=== PATIENT | female | born 1970 | race Two or more races ===

== ENCOUNTER 2024-07-30 05:30 | Day surgery (SDC) | payer OTHER, MEDICAID, SELFPAY ==
[2024-07-27 10:04] VITALS: BMI 35.2
[2024-07-27 10:30] LABS: Collection Type, Urine Clean Catch
[2024-07-27 11:10] LABS: Basophils % (Auto) 1 % (0-2.5); Eosinophils # (Auto) 0.2 Thou/mm3 (0.0-0.5); Eosinophils % (Auto) 3 % (0-10); Hematocrit 35.8 % (36.0-46.0); Hemoglobin 11.1 g/dL (12.0-16.0); Immature Granulocytes % (Auto) 0 % (0-0); Immature Granulocytes Auto 0.01 Thou/mm3 (0.00-0.00); Lymphocytes # (Auto) 1.6 Thou/mm3 (1.0-4.8); Lymphocytes % (Auto) 29 % (10-50); Mean Corpuscular Volume 71 fL (80-100); Monocytes # (Auto) 0.5 Thou/mm3 (0.0-0.8); Monocytes % (Auto) 9 % (0-12); Neutrophils # (Auto) 3.2 Thou/mm3 (1.8-7.7); Neutrophils % (Auto) 59 % (37-80); Nucleated Red Blood Cell % 0 /100 WBC (0); Platelet Count 452 Thou/mm3 (140-440); RDW Standard Deviation 41.7 fL (36.4-46.3); Red Blood Count 5.05 Miln/mm3 (4.00-5.20); White Blood Count 5.4 Thou/mm3 (3.6-11.0)
[2024-07-27 11:12] LABS: HCG Qualitative,Urine Negative
[2024-07-27 11:18] LABS: Bacteria,Urine Rare; Bilirubin,Urine Negative (Negative); Blood,Urine Negative (Negative); Clarity,Urine Clear (Clear/Hazy); Color,Urine Yellow (Lt Yel-Yel); Glucose, Urine Negative (Negative); Hyaline Casts,Urine < 1 /hpf (0-1); Ketones,Urine 2+ (Negative); Leukocyte Esterase,Urine Negative (Negative); Nitrite,Urine Negative (Negative); PH,Urine 6.5 (5.0-7.0); Protein,Urine Trace (Neg - Trace); RBC,Urine 2 /hpf (0-3); Squamous Epithelial Cell,Urine 3 /hpf (0-5); Urobilinogen,Urine Negative mg/dL (0.0-1.0); WBC,Urine 1 /hpf (0-5)
[2024-07-27 11:45] LABS: Alanine Aminotransferase 22 U/L (10-49); Albumin, Serum 4.9 gm/dL (3.5-5.0); Albumin/Globulin Ratio 1.7 (1.2-2.2); Alkaline Phosphatase 63 U/L (46-116); Anion Gap 9 (7-16); Aspartate Amino Transferase 26 U/L (0-34); BUN/Creatinine Ratio 10 Ratio (12-20); Blood Urea Nitrogen 9 mg/dL (9-23); Calcium 9.6 mg/dL (8.3-10.6); Calcium (Corrected) 9.6 mg/dL (8.5-10.1); Carbon Dioxide 24.9 mMol/L (20.0-31.0); Chloride 102 mMol/L (98-107); Creatinine (Component) 0.9 mg/dL (0.6-1.3); Estimated Creatinine Clearance 75.1 mL/min (>60); Globulin 2.9 gm/dL (2.3-3.5); Glucose 106 mg/dL (74-106); Osmolality,Calculated 270 (275-295); Potassium 3.7 mMol/L (3.4-5.1); Sodium 136 mMol/L (136-145); Total Protein 7.8 gm/dL (5.7-8.2); eGFR > 60 See Note
[2024-07-27 12:04] LABS: Partial Thromboplastin Time 26.7 Seconds (22.0-36.0); Prothrombin Time 11.1 Seconds (9.0-12.2)
[2024-07-27 14:26] LABS: Bilirubin,Total 1.4 mg/dL (0.3-1.2)
--- NOTE | 2024-07-28 10:59 | PD.SURHP ---
HPI Date of Admission July 30, 2024 Chief Complaint Chief Complaint: Large hiatal hernia and gastroesophageal reflux unresponsive to medical management. HPI This 54-year-old female is brought to the surgery for laparoscopic hiatal hernia repair and implantation of a patch and laparoscopic Rhona fundoplication due to longstanding problem with gastroesophageal reflux which is unresponsive. She was seen in the emergency room with complaints of pain and the CT scan showed that she has large retrocardiac hernia.. The risk benefits and alternatives discussed with the patient and informed consent is obtained. Small risk of explore laparotomy. It is planned for her to be in the hospital for 2 to 3 days for postoperative management. Past Medical History Past Medical History NEUROLOGIC: Negative Neurological Disorders or Seizures CARDIAC: Positive Cardiac Disorders and Valvular Heart Disease; Negative Congestive Heart Failure RESPIRATORY: Negative Respiratory Disorders or Chronic Obstructive Pulmonary Disease (COPD) GASTROINTESTINAL: Positive Gastrointestinal Disorders, Ulcer (Gastric ulcer that was bleeding), Hiatal Hernia, Gastroesophageal Reflux Disease and Obesity; Negative Hepatitis GENITOURINARY: Negative Genitourinary Disorders or Renal Disease REPRODUCTIVE: Negative Previous Pregnancies MUSCULOSKELETAL: Positive Musculoskeletal Disorders and Fibromyalgia (gets monthly injections for pain) ENT: Negative History of ENT Problems ENDOCRINE: Negative Endocrine Disorders, Diabetes Mellitus Type 1 or Diabetes Mellitus Type 2 HEMATOLOGIC: Negative Blood Disorders PSYCHO/SOCIAL: Positive Depression (feels better no meds) and Anxiety OTHER HISTORY: Positive Hospitalization (bleeding ulcer); Negative Autoimmune Disease, Shingles, Blood Transfusions, Blood Transfusion Reaction, Anesthesia Reactions, Chicken Pox or Cancer Family History FAMILY HISTORY: Positive Family Cancer and Family Surgery; Negative Family Psychiatric Problems, Family Respiratory Disorders, Family Cardiac Disorders, Family Gastrointestinal Problems, Family Genitourinary Problems, Family Endocrine Disorders, Family Reproductive Disorders, Family Musculoskeletal Disorders or Family Anesthesia Reaction Surgical History OTHER SURGICAL HX: Had surgery for bleeding gastric ulcer Social History SMOKING STATUS: Never smoker Travel History EBOLA RISK: No Meds Home Medications and Allergies Home Medications ?Medication ?Instructions ?Recorded ?Confirmed ?Type omeprazole 40 mg capsule,delayed 40 mg PO QDAY 05/08/24 07/27/24 History release Allergies Allergy/AdvReac Type Severity Reaction Status Date / Time No Known Allergies Allergy Verified 07/27/24 10:03 Exam Constitutional Constitutional: no acute distress Routine HEENT Exam Head: Present normocephalic Eye: Present EOMI and PERRL ENT: Present mucous membranes moist Routine Neck Exam Neck: Present supple and trachea midline Routine Chest/Breast/Axilla Exam Chest wall: Absent tenderness or mass Routine Respiratory Exam Respiratory: Present chest non-tender, lungs clear, normal breath sounds and no resp distress; Absent respiratory distress Routine Cardiovascular Exam Cardiovascular: Present RRR Routine Abdominal Exam Abdominal: Present soft and normoactive bowel sounds Routine Extremities Exam Extremities: Present full ROM Routine Skin Exam Skin: Present intact, dry and warm Routine Neurological Exam Neurological: Present alert, oriented X3 and CN II-XII intact Routine Psychiatric Exam Psychiatric: Present normal affect and normal thought process Results Results: Laboratory Laboratory results: results reviewed Assessment & Plan Problem List (1) Gastroesophageal hernia: Status: Acute (2) Erosive gastroesophageal reflux disease: Status: Acute Plan Laparoscopic hiatal hernia repair with implantation of a patch and 360 degree Rhona fundoplication. Possible laparotomy. Risk benefits and alternatives were discussed with the patient and informed consent is obtained. Is plan for her to be in the hospital for 2 to 3 days for postop care. Quality Measures Quality Measures VTE prophylaxis
[2024-07-30] VITALS (10 sets, daily range): BP systolic 126–151; BP diastolic 69–90; PULSE 68–88; RESP 13–20; TEMP 36.2–36.3; O2SAT 95–100; BMI 34.7
[2024-07-30] MEDS: RINGERS LACTATED 1000 ML 1,000 ML 60 ML IV (06:18)
--- NOTE | 2024-07-30 07:27 | CHAP ---
Patient expressed gratitude for prayer before their procedure.
--- NOTE | 2024-07-30 09:18 | SUR.PHASEI ---
0918: Pt. AAOx4, vitals stable, breathing unlabored, no complaint of pain or nausea, x2 dressing to ABD CDI, no active bleed noted, report received from Rossi BARBOZA and MD Fox.
[2024-07-30] MEDS: fentaNYL CIT INJ 50 mCg/ML AMP 2ML 25 MCG IV ×2 (09:29→09:45)
--- NOTE | 2024-07-30 09:38 | ESOP_ITS ---
Date of Procedure 07/30/24 Pre Op Diagnosis Large hiatal hernia and refractory gastroesophageal reflux. Post Op Diagnosis Same. With tumor left lobe of the liver. Procedure Diagnostic laparoscopy on July 30, 2024 Laparoscopic hiatal hernia repair and Rhona fundoplication was scheduled however it was not carried out because the tumor was found in the left lobe of the liver. Findings This patient was found to have about 10 cm tumor at the edge of the left lobe of the liver and there appeared to have cystic and solid components to that it could be a larger liver cyst however the area appears to have a solid component to it and therefore the procedure was terminated after examination. Procedure Description The patient was interviewed in the preoperative area risk benefits alternatives were discussed with the patient and informed consent is obtained. Patient was then taken to the operating room and general anesthesia was administered in the satisfactory manner. Abdomen was prepped and draped in usual manner supraumbilical incision was made and open laparoscopic procedure was carried out a balloon cannula was introduced. Pneumoperitoneum was achieved and then patient is positioned in the reverse Trendelenburg position and 30 degree laparoscope was introduced. On initial laparoscopic examination I found that there was a tumor in the left lobe of the liver. I inserted the left midclavicular trocar for instrument access to the peritoneal cavity. I found that there were no other cystic or solid lesions anywhere in the liver. The gallbladder had omental adhesions however there was no other tumo in the right and left lobe of liver. I did not find any other evidence of peritoneal spread. The tumor in the left lobe was not biopsied photographic evidence was taken for communication to hepatobiliary surgeon for further evaluation and resection. The hiatus was examined and there is a large hiatal hernia with 30% of the stomach residing in the chest. It was decided to terminate the procedure. The cannulas were removed. The linea alba was approximated by 0 Vicryl continuous sutures subtenons tissue by 3-0 chromic and skin by 4-0 Monocryl subcuticular stitches Steri-Strips were applied. The left midclavicular trocar site was closed with 3-0 chromic and 4-0 Monocryl subcuticular stitches Steri-Strips were applied. Patient tolerated the procedure well and was transferred to the recovery room in satisfactory condition. Anesthesia GETA Drains None. Implants None. Pathology / specimen None Estimated Blood Loss 0 Condition Stable Disposition PACU Surgeon Clifford Irby MD Surgical Staff Operation Date: 07/30/24 07:30 Case Staff Anesthesiologist: Demario Fox RN First Assistant: Anu Mcbride RN modeling manager Gilberto Villatoro rn neurosurgical
--- NOTE | 2024-07-30 09:54 | XR_ITS ---
Examination: CT abdomen, without intravenous contrast. CT pelvis, without intravenous contrast. CT abdomen, with intravenous contrast. CT pelvis, with intravenous contrast. 2-D sagittal coronal reconstructions. Date and time of exam:July 30, 2024 1022 hours INDICATIONS: Diagnosis liver tumor CTDI: vol (mGy) 18.81 DLP: (mGycm) 1174 Technique: Multiple 3.0 axial images of the abdomen and pelvis without intravenous contrast, 3.0 mm slice thickness. Multiple 3.0 postcontrast images abdomen and pelvis also obtained, post intravenous injection 60 cc [id number] 2-D sagittal and coronal reconstructions. Low dose protocols were performed. One or more of the following dose reduction techniques were used; automated exposure control, adjustment of the mA and/or KV according to patient size, use of iterative reconstruction technique. Findings: Exophytic enhancing left lobe liver lesion, 4.9 x 4.3 cm Medial right lobe liver lesion 10 x 12 mm No splenic mass No gallstones No pancreatic or adrenal mass No renal or ureteral calculi, no hydronephrosis Aorta normal size Numerous air droplets in the subcutaneous tissue anterior abdominal wall, clinical correlation advised Pneumoperitoneum 20 mm supraumbilical hernia defect 5 mm fat-containing umbilical hernia defect Normal appendix Enlarged fundus of uterus with uterine masses, the largest 4 cm Near the urinary bladder IMPRESSION: Exophytic enhancing left lobe liver lesion 4.9 x 4.3 cm Medial right lobe liver lesion 10 x 12 mm Air in the soft tissue anterior abdominal wall, pneumoperitoneum, which may be postoperative, clinical correlation advised Enlarged fundus of uterus with multiple uterine masses, the largest 4 cm, clinical correlation
--- NOTE | 2024-07-30 10:55 | SUR.PHASEII ---
1055: Pt. AAOx4, vitals stable, breathing unlabored, no complaint of pain or nausea, x2 dressing to ABD CDI, no active bleed noted, pt. tolerated sips of water well, pt, ambulated to wheelchair with steady gait and no assist, no complications. Pt. tolerated CT well, gave discharge instructions to the pt. and her ride using college basketball coach Tati CONLEY, both verbalized understanding and had no further questions. Pt. left with all personal belongings.
== END 2024-07-30 10:55 | disposition home or self-care (01) ==
PROVIDERS: Anesthesiology; PCP Physician Assistant; Referring Provider Specialist; Visit Provider Specialist
PROC: 0DV44ZZ Restriction of Esophagogastric Junction, Percutaneous Endoscopic Approach (ICD-10-PCS; CPT 43280; principal; 2024-07-30 07:30)
DX: K44.9 Diaphragmatic hernia without obstruction or gangrene (principal); K21.00 Gastro-esophageal reflux disease with esophagitis, without bleeding; E66.9 Obesity, unspecified; M79.7 Fibromyalgia; Z53.9 Procedure and treatment not carried out, unspecified reason; Z68.34 Body mass index [BMI] 34.0-34.9, adult
CPT/HCPCS: 43282; 36415; 74178; 80053; 81001; 81025; 85025; 85610; 85730; A4217; A4649; J0461; J0694; J1100; J2250; J2371; J2405; J2704; J3010; J3490; J7120; Q9967; A9270

== ENCOUNTER 2024-11-26 12:47 | Inpatient (IN) | payer MEDICAID, SELFPAY ==
--- NOTE | 2024-11-23 06:44 | EKG_ITS ---
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
[2024-11-23 08:22] VITALS: BMI 33.6
[2024-11-23 08:48] LABS: Collection Type, Urine Clean Catch
[2024-11-23 08:58] LABS: Basophils # (Auto) 0.1 Thou/mm3 (0.0-0.2); Basophils % (Auto) 1 % (0-2.5); Eosinophils # (Auto) 0.3 Thou/mm3 (0.0-0.5); Eosinophils % (Auto) 4 % (0-10); Hematocrit 38.4 % (36.0-46.0); Immature Granulocytes % (Auto) 0 % (0-0); Immature Granulocytes Auto 0.01 Thou/mm3 (0.00-0.00); Lymphocytes # (Auto) 2.2 Thou/mm3 (1.0-4.8); Lymphocytes % (Auto) 32 % (10-50); Mean Corpuscular HGB Conc 31.3 g/dl (31.0-37.0); Mean Corpuscular Volume 67 fL (80-100); Monocytes # (Auto) 0.7 Thou/mm3 (0.0-0.8); Monocytes % (Auto) 9 % (0-12); Neutrophils # (Auto) 3.7 Thou/mm3 (1.8-7.7); Neutrophils % (Auto) 53 % (37-80); Nucleated Red Blood Cell % 0 /100 WBC (0); Platelet Count 392 Thou/mm3 (140-440); RDW Standard Deviation 45.6 fL (36.4-46.3); Red Blood Count 5.72 Miln/mm3 (4.00-5.20)
[2024-11-23 09:11] LABS: HCG,Qualitative Serum Negative
[2024-11-23 09:14] LABS: Partial Thromboplastin Time 26.3 Seconds (22.0-36.0); Prothrombin Time 11.2 Seconds (9.0-12.2)
[2024-11-23 09:17] LABS: Alanine Aminotransferase 16 U/L (10-49); Albumin, Serum 4.8 gm/dL (3.5-5.0); Albumin/Globulin Ratio 1.5 (1.2-2.2); Alkaline Phosphatase 69 U/L (46-116); Anion Gap 10 (7-16); Aspartate Amino Transferase 18 U/L (0-34); BUN/Creatinine Ratio 15 Ratio (12-20); Bilirubin,Total 0.9 mg/dL (0.3-1.2); Blood Urea Nitrogen 12 mg/dL (9-23); Calcium 10.4 mg/dL (8.3-10.6); Calcium (Corrected) 10.4 mg/dL (8.5-10.1); Carbon Dioxide 26.9 mMol/L (20.0-31.0); Chloride 104 mMol/L (98-107); Creatinine (Component) 0.8 mg/dL (0.6-1.3); Estimated Creatinine Clearance 85.5 mL/min (>60); Globulin 3.3 gm/dL (2.3-3.5); Glucose 125 mg/dL (74-106); Osmolality,Calculated 281 (275-295); Potassium 4.5 mMol/L (3.4-5.1); Sodium 141 mMol/L (136-145); Total Protein 8.1 gm/dL (5.7-8.2); eGFR > 60 See Note
[2024-11-23 09:17] LABS: Bilirubin,Urine Negative (Negative); Blood,Urine Negative (Negative); Clarity,Urine Clear (Clear/Hazy); Color,Urine Lt-Yellow (Lt Yel-Yel); Glucose, Urine Negative (Negative); Ketones,Urine Negative (Negative); Leukocyte Esterase,Urine Positive (Negative); Nitrite,Urine Negative (Negative); PH,Urine 6.5 (5.0-7.0); Protein,Urine Negative (Neg - Trace); RBC,Urine 2 /hpf (0-3); Specific Gravity,Urine 1.022 (1.001-1.035); Squamous Epithelial Cell,Urine 7 /hpf (0-5); Urobilinogen,Urine Negative mg/dL (0.0-1.0); WBC,Urine 4 /hpf (0-5)
[2024-11-23 10:11] LABS: Path Review Blood Smear Sent to Pathologist
--- NOTE | 2024-11-23 14:03 | SUR.PREOP ---
Pt notified to come in at 544 for surgery.
--- NOTE | 2024-11-23 14:53 | SUR.PREOP ---
Dr Irby's MA stated pt did make them aware that she will not take a blood transfusion.
--- NOTE | 2024-11-25 18:05 | PD.SURHP ---
HPI Date of Admission November 26, 2024 Chief Complaint Chief Complaint: Lesion in the left lobe of liver HPI This 54-year-old female is brought to the hospital for explore laparotomy and wedge resection of a small lesion on the edge of the left lobe of the liver. She was previously scheduled for laparoscopic hiatal hernia repair and at that time I lesion was noted at the edge of the left lobe of the liver and the laparoscopic fundoplication procedure was terminated as there was no informed consent. Subsequently she underwent CT scan examination and that showed there was a small lesion in the left lobe of the liver on the edge. This is amenable to wedge resection. Informed consent was obtained and she is now brought to the hospital for laparotomy and wedge resection of the tumor lesion of the left lobe of the liver. Past Medical History Past Medical History NEUROLOGIC: Negative Neurological Disorders or Seizures CARDIAC: Positive Valvular Heart Disease; Negative Cardiac Disorders or Congestive Heart Failure RESPIRATORY: Negative Respiratory Disorders, Chronic Obstructive Pulmonary Disease (COPD) or Asthma GASTROINTESTINAL: Positive Gastrointestinal Disorders, Gastrointestinal Bleed (rupture ulcer), Ulcer, Hiatal Hernia, Gastroesophageal Reflux Disease and Obesity; Negative Hepatitis GENITOURINARY: Negative Genitourinary Disorders or Renal Disease REPRODUCTIVE: Negative Previous Pregnancies MUSCULOSKELETAL: Positive Musculoskeletal Disorders and Fibromyalgia ENT: Negative History of ENT Problems ENDOCRINE: Negative Endocrine Disorders, Diabetes Mellitus Type 1 or Diabetes Mellitus Type 2 HEMATOLOGIC: Negative Blood Disorders or Sickle Cell Disease PSYCHO/SOCIAL: Positive Depression (not taking meds anymore) and Anxiety (not taking meds anymore) OTHER HISTORY: Positive Hospitalization; Negative Autoimmune Disease, Shingles, Blood Transfusions, Blood Transfusion Reaction, Anesthesia Reactions, Chicken Pox or Cancer Family History FAMILY HISTORY: Positive Family Cardiac Disorders, Family Endocrine Disorders, Family Cancer and Family Surgery; Negative Family Psychiatric Problems, Family Respiratory Disorders, Family Gastrointestinal Problems, Family Genitourinary Problems, Family Reproductive Disorders, Family Musculoskeletal Disorders or Family Anesthesia Reaction Surgical History SURGICAL: Negative Abdominal Surgery (gastric ulcer repair) OTHER SURGICAL HX: Had surgery for bleeding gastric ulcer Social History SMOKING STATUS: Never smoker Travel History EBOLA RISK: No Meds Home Medications and Allergies Home Medications ?Medication ?Instructions ?Recorded ?Confirmed ?Type omeprazole 40 mg capsule,delayed 40 mg PO QDAY 05/08/24 11/23/24 History release Allergies Allergy/AdvReac Type Severity Reaction Status Date / Time No Known Allergies Allergy Verified 11/23/24 08:21 Exam Constitutional Constitutional: no acute distress Routine HEENT Exam Head: Present normocephalic Eye: Present EOMI and PERRL ENT: Present mucous membranes moist Routine Neck Exam Neck: Present supple and trachea midline Routine Chest/Breast/Axilla Exam Chest wall: Absent tenderness or mass Routine Respiratory Exam Respiratory: Present chest non-tender, lungs clear, normal breath sounds and no resp distress; Absent respiratory distress Routine Cardiovascular Exam Cardiovascular: Present RRR Routine Abdominal Exam Abdominal: Present soft and normoactive bowel sounds Comments: There is are healing incisions from previous laparoscopic examination. There is no evidence of incisional hernia from the trocar site. Routine Extremities Exam Extremities: Present full ROM Routine Skin Exam Skin: Present intact, dry and warm Routine Neurological Exam Neurological: Present alert, oriented X3 and CN II-XII intact Routine Psychiatric Exam Psychiatric: Present normal affect and normal thought process Results Results: Laboratory Laboratory results: results reviewed Assessment & Plan Problem List (1) Liver neoplasm: Status: Acute (2) Gastroesophageal hernia: Status: Acute (3) Erosive gastroesophageal reflux disease: Status: Acute Plan Exploratory laparotomy and wedge resection of the tumor of the left lobe of the liver. Patient will undergo intraoperative ultrasound to map out the tumor. Risk benefits and alternatives were discussed with the patient and informed consent is obtained. Quality Measures Quality Measures VTE prophylaxis
[2024-11-26] VITALS (18 sets, daily range): BP systolic 117–157; BP diastolic 72–98; PULSE 70–93; RESP 12–93; TEMP 35.7–36.7; O2SAT 92–100; BMI 33.0
--- NOTE | 2024-11-26 07:29 | SUR.PREOP ---
Patient expressed gratitude for prayer before their procedure.
--- NOTE | 2024-11-26 10:18 | PD.SUROPNT ---
Date of Procedure 11/26/24 Pre Op Diagnosis Tumor left lobe of the liver Post Op Diagnosis Same. Procedure Exploratory laparotomy and resection of the left lobe of the liver tumor on 11/26/2024 Intraoperative ultrasound Findings There was a 7 cm x 7 cm soft tumor on the edge of the left lobe of liver. This was on the left side of the falciform ligament it was close to the edge. Ultrasound examination showed that there is a distinct capsule and there is some necrotic areas within the tumor. There were no other significant findings. Rapid frozen section examination was carried out by the pathologist and it felt that there was no metastatic cancer and there was significant vascularity to the tumor. Procedure Description This patient is a Tenriism and refused to have blood transfusion. Patient was examined in the preop area and the procedure was described to the patient risk benefits and alternatives were discussed with the patient and informed consent is obtained. The patient was then taken to the operating room and general anesthesia was administered in satisfactory manner. IV antibiotics were given and a timeout procedure was carried out. Chest and abdominal regions were prepped and draped in usual manner. Previous laparoscopic scar was excised and midline incision was made from xiphisternum to the umbilicus. Local anesthesia 1% lidocaine with epinephrine is used as adjunct. The incision was deepened through the layers of the abdominal wall and explore laparotomy was carried out. An Omni-Tract self-retaining retractor was used to retract the abdominal wall. There were no other identifiable lesions in the liver. Omni-Tract self-retaining retractor is used. Intraoperative ultrasound is carried out with 7.5 MHz linear probe under sterile cover. The extent of the tumor was identified. The liver capsule was scored with electrocautery. Then I used the Enseal to divide the liver. It was divided on both the side like a wedge. There was a pedicle with likely bile duct entering in this area and this was clamped and ligated with 2-0 silk tie. There was minimal amount of bleeding. Hemostasis was achieved. The specimen was removed and sent to the pathologist for frozen section and is fresh examination. The pathologist felt that it was a benign tumor. After that I looked at the resected area in the liver. There was no active bleeding. I placed a Surgicel gauze inside or in between the edges of the excised wedge. Then I took 0 chromic blunt liver needle and went around on both the sides and closed the defect with the Surgicel in the middle. It required 3 such stitches to hold the resected liver edges together. There was no longer any oozing or bleeding. Operative field was thoroughly irrigated with saline solution and laps and instrument counts were obtained they are correct x 2 the Omni-Tract retractor was removed. Again the operative field is thoroughly examined and there are no other labs remaining. The linea alba was approximated by 0 PDS continuous suture interrupted in the middle. Subtenons tissue by 3-0 chromic and skin by 4-0 Monocryl subcuticular stitches. Steri-Strips were applied. Patient tolerated the procedure well and transferred to the recovery room in a satisfactory condition. Complications none. Anesthesia GETA Drains None. Implants None. Pathology / specimen Other (Left lobe of the liver resected tumor and the skin scar) Estimated Blood Loss 50 Condition Stable Surgeon Clifford Irby MD Surgical Staff Operation Date: 11/26/24 07:30 Case Staff Anesthesiologist: Demario Fox RN First Assistant: Anu Patel RN supervisor treating and pumping traveler [employer] assistant professor surgical technology
--- NOTE | 2024-11-26 10:22 | SUR.PHASEI ---
1022: Pt. wakes to name then drifts back to sleep, vitals stable, breathing unlabored, no signs of distress, dressing to ABD CDI, no active bleed noted, navarro cathter in place draining clear yellow urine, NG tube in place 65 at right nare placed in OR, report received from MD Fox and Blayne BARBOZA.
[2024-11-26] MEDS: fentaNYL CIT INJ 50 mCg/ML AMP 2ML 25 MCG IV ×7 (10:29→12:03)
[2024-11-26] MEDS: ACETAMINOPHEN IVPB 1,000 MG/100 ML VIAL 250 MG IV ×3 (11:23→23:50)
--- NOTE | 2024-11-26 12:15 | SUR.PHASEII ---
1215: Pt. AAOx4, vitals stable, breathing unlabored, complaint of slight pain but stated it's at a tolerable level, no complaint of nausea, dressing to ABD CDI, ABD Binder in place, NG tube in place and clamped for transfer, navarro catheter in place draining clear yellow uring, pt. transfered to room 352. Gave report to Amie BARBOZA prior to transfer to room. Family made aware of transfer to room, pt. transferred with all her belongings.
--- NOTE | 2024-11-26 14:24 | PC.NURSE ---
Pt accidently pulled out NG tube. Notified Dr Irby per ok to leave off now.
[2024-11-26] MEDS: RINGERS LACTATED 1000 ML 1,000 ML 60 ML IV (14:51)
[2024-11-26] MEDS: PANTOPRAZOLE INJ 40 MG VIAL IVP (14:52)
[2024-11-26] MEDS: HYDROmorphone INJ 2 MG/ML VIAL 1 MG IVP ×2 (16:54→21:17)
--- NOTE | 2024-11-26 18:22 | PC.NURSE ---
Pt requesting to keep fc in place one more day. Notified md Irby per ok to keep one more day.
[2024-11-26] MEDS: GABAPENTIN 100 MG CAPSULE 200 MG PO (21:15)
[2024-11-26] MEDS: MELATONIN 3 MG TABLET PO (22:17)
[2024-11-27] VITALS (8 sets, daily range): BP systolic 103–136; BP diastolic 65–93; PULSE 63–79; RESP 16–96; TEMP 36.1–36.8; O2SAT 92–97
[2024-11-27] MEDS: HYDROmorphone INJ 2 MG/ML VIAL 1 MG IVP ×3 (05:25→14:34)
[2024-11-27] MEDS: ACETAMINOPHEN IVPB 1,000 MG/100 ML VIAL 250 MG IV (05:28)
[2024-11-27] MEDS: RINGERS LACTATED 1000 ML 1,000 ML 60 ML IV ×2 (05:28→16:54)
[2024-11-27] MEDS: PANTOPRAZOLE INJ 40 MG VIAL IVP (08:19)
[2024-11-27] MEDS: GABAPENTIN 100 MG CAPSULE 200 MG PO ×2 (08:20→20:38)
[2024-11-27 09:22] LABS: Basophils % (Auto) 0 % (0-2.5); Eosinophils # (Auto) 0.1 Thou/mm3 (0.0-0.5); Eosinophils % (Auto) 1 % (0-10); Hematocrit 31.2 % (36.0-46.0); Immature Granulocytes % (Auto) 0 % (0-0); Immature Granulocytes Auto 0.02 Thou/mm3 (0.00-0.00); Lymphocytes # (Auto) 1.5 Thou/mm3 (1.0-4.8); Lymphocytes % (Auto) 17 % (10-50); Mean Corpuscular HGB Conc 32.1 g/dl (31.0-37.0); Mean Corpuscular Hemoglobin 21.3 pg (25.0-35.0); Mean Corpuscular Volume 67 fL (80-100); Monocytes # (Auto) 0.7 Thou/mm3 (0.0-0.8); Monocytes % (Auto) 8 % (0-12); Neutrophils # (Auto) 6.5 Thou/mm3 (1.8-7.7); Neutrophils % (Auto) 74 % (37-80); Nucleated Red Blood Cell % 0 /100 WBC (0); Platelet Count 299 Thou/mm3 (140-440); RDW Standard Deviation 45.4 fL (36.4-46.3); Red Blood Count 4.69 Miln/mm3 (4.00-5.20); White Blood Count 8.7 Thou/mm3 (3.6-11.0)
[2024-11-27 09:38] LABS: Alanine Aminotransferase 77 U/L (10-49); Albumin, Serum 4.1 gm/dL (3.5-5.0); Albumin/Globulin Ratio 1.6 (1.2-2.2); Alkaline Phosphatase 58 U/L (46-116); Anion Gap 10 (7-16); Aspartate Amino Transferase 69 U/L (0-34); BUN/Creatinine Ratio 11 Ratio (12-20); Bilirubin,Total 1.4 mg/dL (0.3-1.2); Blood Urea Nitrogen 9 mg/dL (9-23); Calcium 9.2 mg/dL (8.3-10.6); Calcium (Corrected) 9.2 mg/dL (8.5-10.1); Carbon Dioxide 26.3 mMol/L (20.0-31.0); Chloride 101 mMol/L (98-107); Creatinine (Component) 0.8 mg/dL (0.6-1.3); Globulin 2.5 gm/dL (2.3-3.5); Glucose 132 mg/dL (74-106); Osmolality,Calculated 274 (275-295); Potassium 3.7 mMol/L (3.4-5.1); Sodium 137 mMol/L (136-145); Total Protein 6.6 gm/dL (5.7-8.2); eGFR > 60 See Note
[2024-11-27] MEDS: KETOROLAC INJ 30 MG/ML VIAL IVP (19:46)
[2024-11-27] MEDS: MELATONIN 3 MG TABLET PO (20:39)
[2024-11-28] VITALS: BP 124/75; PULSE 68; RESP 16; TEMP 36.3; O2SAT 93
[2024-11-28 04:00] VITALS: BP 111/69; PULSE 72; RESP 17; TEMP 36.7; O2SAT 95
[2024-11-28] MEDS: HYDROcodone/APAP 10/325 TAB PO (06:21)
[2024-11-28] MEDS: RINGERS LACTATED 1000 ML 1,000 ML 60 ML IV (06:22)
[2024-11-28 07:26] VITALS: BP 133/75; PULSE 67; RESP 16; TEMP 36.3; O2SAT 92
[2024-11-28 07:53] VITALS: PULSE 79; RESP 18; RESP 98
[2024-11-28] MEDS: GABAPENTIN 100 MG CAPSULE 200 MG PO (09:39)
[2024-11-28] MEDS: PANTOPRAZOLE INJ 40 MG VIAL IVP (09:40)
[2024-11-28] MEDS: HYDROmorphone INJ 2 MG/ML VIAL 1 MG IVP (09:42)
[2024-11-28 09:46] LABS: Basophils % (Auto) 1 % (0-2.5); Eosinophils # (Auto) 0.2 Thou/mm3 (0.0-0.5); Eosinophils % (Auto) 4 % (0-10); Hematocrit 30.2 % (36.0-46.0); Hemoglobin 9.5 g/dL (12.0-16.0); Immature Granulocytes % (Auto) 0 % (0-0); Immature Granulocytes Auto 0.02 Thou/mm3 (0.00-0.00); Lymphocytes # (Auto) 1.3 Thou/mm3 (1.0-4.8); Lymphocytes % (Auto) 23 % (10-50); Mean Corpuscular HGB Conc 31.5 g/dl (31.0-37.0); Mean Corpuscular Hemoglobin 21.5 pg (25.0-35.0); Mean Corpuscular Volume 68 fL (80-100); Monocytes # (Auto) 0.3 Thou/mm3 (0.0-0.8); Monocytes % (Auto) 6 % (0-12); Neutrophils # (Auto) 3.7 Thou/mm3 (1.8-7.7); Neutrophils % (Auto) 66 % (37-80); Nucleated Red Blood Cell % 0 /100 WBC (0); Platelet Count 252 Thou/mm3 (140-440); RDW Standard Deviation 47.1 fL (36.4-46.3); Red Blood Count 4.42 Miln/mm3 (4.00-5.20); White Blood Count 5.6 Thou/mm3 (3.6-11.0)
[2024-11-28 10:01] LABS: Alanine Aminotransferase 64 U/L (10-49); Albumin, Serum 3.9 gm/dL (3.5-5.0); Albumin/Globulin Ratio 1.6 (1.2-2.2); Alkaline Phosphatase 59 U/L (46-116); Anion Gap 7 (7-16); Aspartate Amino Transferase 41 U/L (0-34); BUN/Creatinine Ratio 11 Ratio (12-20); Bilirubin,Total 1.1 mg/dL (0.3-1.2); Blood Urea Nitrogen 9 mg/dL (9-23); Calcium (Corrected) 9.1 mg/dL (8.5-10.1); Carbon Dioxide 27.6 mMol/L (20.0-31.0); Chloride 102 mMol/L (98-107); Creatinine (Component) 0.8 mg/dL (0.6-1.3); Globulin 2.5 gm/dL (2.3-3.5); Glucose 140 mg/dL (74-106); Osmolality,Calculated 274 (275-295); Potassium 3.1 mMol/L (3.4-5.1); Sodium 137 mMol/L (136-145); Total Protein 6.4 gm/dL (5.7-8.2); eGFR > 60 See Note
[2024-11-28 11:17] VITALS: BP 130/86; PULSE 75; RESP 16; TEMP 35.7; O2SAT 92
--- NOTE | 2024-11-28 12:12 | ESPR_ITS ---
Documentation for date of: 11/27/24 Subjective Subjective Brief History: This 54-year-old female is brought to the hospital for explore laparotomy and wedge resection of a small lesion on the edge of the left lobe of the liver. She was previously scheduled for laparoscopic hiatal hernia repair and at that time I lesion was noted at the edge of the left lobe of the liver and the laparoscopic fundoplication procedure was terminated as there was no in formed consent. Subsequently she underwent CT scan examination and that showed there was a small lesion in the left lobe of the liver on the edge. This is amenable to wedge resection. Informed consent was obtained and she is now brought to the hospital for laparotomy and wedge resection of the tumor lesion of the left lobe of the liver. November 27, 2024 postop day 1 Patient is needing IV narcotics for pain management and Dilaudid she is also getting Toradol. She has some incisional pain. She was started on clear liquid diet and that is being tolerated. The Cross catheter was removed and she is able to void after that. She needs to get out of the bed and ambulate in the hallways before we can determine the discharge plan. The pathologic examination is not back yet the findings at surgery were all discussed with the patient. Exam Vital Signs Temp Pulse Resp BP Pulse Ox O2 Del Method O2 Flow Rate 96.2 F L 75 16 130/86 H 92 L Room Air 2 11/28/24 11:17 11/28/24 11:17 11/28/24 11:17 11/28/24 11:17 11/28/24 11:17 11/28/24 11:17 11/26/24 13:14 Narrative Exam The abdomen is soft and nondistended incisional dressing is dry and intact without any bleeding there is not much of any tenderness in that area. Cardiopulmonary examination is normal extremities are unremarkable. The patient was encouraged to ambulate. Assessment & Plan Diagnosis (1) Liver neoplasm: Status: Acute (2) Postoperative pain: Status: Acute (3) Gastroesophageal hernia: Status: Acute (4) History of resection of liver: Status: Acute Plan Advance diet to full liquid diet and help patient ambulate more in the hallways. Procedures Procedure Date 11/26/24 Procedures Exploratory laparotomy and resection of the left lobe of the liver tumor on 11/26/2024 Intraoperative ultrasound
--- NOTE | 2024-11-28 12:17 | ESPR_ITS ---
Documentation for date of: 11/28/24 Subjective Subjective Brief History: This 54-year-old female is brought to the hospital for explore laparotomy and wedge resection of a small lesion on the edge of the left lobe of the liver. She was previously scheduled for laparoscopic hiatal hernia repair and at that time I lesion was noted at the edge of the left lobe of the liver and the laparoscopic fundoplication procedure was terminated as there was no in formed consent. Subsequently she underwent CT scan examination and that showed there was a small lesion in the left lobe of the liver on the edge. This is amenable to wedge resection. Informed consent was obtained and she is now brought to the hospital for laparotomy and wedge resection of the tumor lesion of the left lobe of the liver. November 27, 2024 postop day 1 Patient is needing IV narcotics for pain management and Dilaudid she is also getting Toradol. She has some incisional pain. She was started on clear liquid diet and that is being tolerated. The Cross catheter was removed and she is able to void after that. She needs to get out of the bed and ambulate in the hallways before we can determine the discharge plan. The pathologic examination is not back yet the findings at surgery were all discussed with the patient. November 28, 2024 postop day 2 This patient is tolerating full liquid diet well without any difficulty she is ambulating and passing flatus. She does not require IV narcotic medication for pain management. She will be discharged home on oral pain medication follow-up in the office in 2 weeks. The pathologic examination was reviewed and it showed a hemangioma of the left lobe of the liver. Exam Vital Signs Temp Pulse Resp BP Pulse Ox O2 Del Method O2 Flow Rate 96.2 F L 75 16 130/86 H 92 L Room Air 2 11/28/24 11:17 11/28/24 11:17 11/28/24 11:17 11/28/24 11:17 11/28/24 11:17 11/28/24 11:17 11/26/24 13:14 Narrative Exam The abdomen is soft and nontender incision is healing normally there is no infection patient is noted to be ambulating well in the hallways and cardiopulmonary examination is unremarkable extremities are unremarkable will discharge patient home Assessment & Plan Diagnosis (1) Hemangioma of liver: Status: Acute Plan Discharge patient home follow-up in the office in 2 weeks Procedures Procedure Date 11/26/24 Procedures Exploratory laparotomy and resection of the left lobe of the liver tumor on 11/26/2024 Intraoperative ultrasound
--- NOTE | 2024-11-28 12:19 | PD.SURDS ---
Planned Discharge Date 11/28/24 DS: Providers Provider Date of admission: 11/26/24 12:47 Primary care physician: Matt Swanson Admitting Provider: Clifford Irby MD Attending Provider on Admission: Clifford Irby MD Attending Provider on DC: Clifford Irby MD Discharging Provider: Clifford Irby MD Diagnosis Discharge Diagnosis (1) Hemangioma of liver: Status: Acute (2) History of resection of liver: Status: Acute (3) Postoperative pain: Status: Acute (4) Gastroesophageal hernia: Status: Acute (5) Erosive gastroesophageal reflux disease: Status: Acute Problem List Completed Was Problem List Reviewed/Reconciled?: Yes Hospital Course On the day of admission patient underwent explore laparotomy resection of the left lobe of the liver tumor. Postoperatively she required pain medication with narcotics. Her pain management gradually improved with conversion to Toradol and acetaminophen. She was started on clear liquid diet and advance to full liquid diet she is tolerating that well passing flatus and ambulating well in the hallways she wants to go home. Her condition is markedly improved. Exam Vital Signs Temp Pulse Resp BP Pulse Ox O2 Del Method O2 Flow Rate 96.2 F L 75 16 130/86 H 92 L Room Air 2 11/28/24 11:17 11/28/24 11:17 11/28/24 11:17 11/28/24 11:17 11/28/24 11:17 11/28/24 11:17 11/26/24 13:14 Narrative Exam The abdomen is soft and nontender incision is healing normally cardiopulmonary examination is normal extremities are unremarkable patient is able to take care of the activities of daily life and she will be discharged home today. Discharge Plan Plan Patient Disposition: HOME (Self Care) Disposition Comment: Follow-up in the office in 2 weeks Prescriptions/Referrals Prescriptions/Med Rec: New hydrocodone-acetaminophen 10-325 mg tablet 1 tab PO Q6H MDD 4 PRN (Reason: pain) Qty: 20 0RF Continued hydrocodone-acetaminophen 10-325 mg tablet 1 tab PO Q6H MDD 4 PRN (Reason: pain) Qty: 20 0RF No Action omeprazole 40 mg capsule,delayed release(DR/EC) 40 mg PO QDAY Referrals: Matt Swanson [Primary Care Provider] - Patient/Caregiver Discharge Instructions Other Discharge Activity Instructions:: May take shower keep the incision dry Other Discharge Diet Instructions: Regular diet as tolerated Print Language: Mohawk Stand Alone Forms: [facility] Award Info., Patient Portal Info Letter Discharge Order Discharge Orders: Discharge (Routine); Ordered 11/28/24 Ordered By: Clifford Irby Procedures Procedure Date 11/26/24 Procedures Exploratory laparotomy and resection of the left lobe of the liver tumor on 11/26/2024 Intraoperative ultrasound
[2024-11-28] MEDS: INFLUENZA VIRUS QUADRIVALENT 0.5 ML SYRINGE IMi (13:25)
[2024-11-28 13:29] VITALS: BP 133/87; PULSE 86; RESP 18; TEMP 36.2; O2SAT 98
== END 2024-11-28 13:34 | disposition home or self-care (01) | DRG 229 ==
LOC: S3NX 15:27 → S2EX 11-27 07:36
PROVIDERS: Anesthesiology; Admitting Provider Specialist; PCP Physician Assistant; Referring Provider Specialist; Visit Provider Specialist
PROC: 0FB20ZX Excision of Left Lobe Liver, Open Approach, Diagnostic (ICD-10-PCS; CPT 49000; principal; 2024-11-26 07:30)
DX: D49.0 Neoplasm of unspecified behavior of digestive system (principal); K21.9 Gastro-esophageal reflux disease without esophagitis; D18.03 Hemangioma of intra-abdominal structures
CPT/HCPCS: 36415; 80053; 81001; 84703; 85025; 85610; 85730; 90686; 93005; 94664; A4217; A4649; J0131; J0461; J0694; J1100; J1885; J2250; J2405; J2470; J2704; J3010; J3490; J7120; A9270; J9060

== ENCOUNTER → 2025-06-18 | Outpatient (CLI) | payer OTHER, SELFPAY ==
--- NOTE | 2025-06-18 11:30 | XR_ITS ---
Examination: CT abdomen with intravenous contrast CT pelvis with intravenous contrast 2-D coronal reconstructions 2-D sagittal reconstructions Date and time of exam: June 18, 2025, 1155 hours, comparison July 30, 2024 INDICATIONS: Diagnosis liver lesion, left lobe 4.9 x 4.3 cm, right lobe liver lesion 10 x [address] study July 30, 2024. CTDI: vol (mGy) 17.8 DLP: (mGycm) 655 Technique: Multiple axial sections of the abdomen and pelvis have been obtained. 64 slice high-resolution scanner used. 3 mm axial sections have been obtained, post intravenous injection 60 cc [id number] 2-D sagittal, coronal reconstructions obtained. Low dose protocols were performed. One or more of the following dose reduction techniques were used; automated exposure control, adjustment of the mA and/or KV according to patient size, use of iterative reconstruction technique. Findings: No current liver lesions No gallstones No pancreatic or adrenal mass Aorta normal size No abdominal or pelvic lymphadenopathy No renal mass lesion No bowel obstruction No pericecal inflammatory change Multiple uterine fundal masses noted on the prior study Osseous structures intact IMPRESSION: The previously noted liver lesions are no longer identified, consider MRI liver follow-up pre and postcontrast
[2025-06-18 11:53] LABS: HCG Qualitative,Urine Negative
== END | disposition home or self-care (01) ==
LOC: SCAT 10:43
PROVIDERS: PCP Physician Assistant; Referring Provider Specialist; Visit Provider Specialist
DX: K76.9 Liver disease, unspecified (principal); Z32.00 Encounter for pregnancy test, result unknown
CPT/HCPCS: 74177; 81025; A4649; Q9967

== ENCOUNTER → 2025-06-25 | Outpatient (CLI) | payer OTHER, MEDICAID, SELFPAY ==
[2025-06-25 13:29] LABS: Basophils # (Auto) 0.1 Thou/mm3 (0.0-0.2); Basophils % (Auto) 1 % (0-2.5); Eosinophils # (Auto) 0.3 Thou/mm3 (0.0-0.5); Eosinophils % (Auto) 5 % (0-10); Hematocrit 32.4 % (36.0-46.0); Hemoglobin 9.7 g/dL (12.0-16.0); Immature Granulocytes Auto 0.01 Thou/mm3 (0.00-0.00); Lymphocytes # (Auto) 1.6 Thou/mm3 (1.0-4.8); Lymphocytes % (Auto) 34 % (10-50); Mean Corpuscular HGB Conc 29.9 g/dl (31.0-37.0); Mean Corpuscular Hemoglobin 19.2 pg (25.0-35.0); Mean Corpuscular Volume 64 fL (80-100); Monocytes # (Auto) 0.5 Thou/mm3 (0.0-0.8); Monocytes % (Auto) 11 % (0-12); Neutrophils # (Auto) 2.3 Thou/mm3 (1.8-7.7); Neutrophils % (Auto) 48 % (37-80); Nucleated Red Blood Cell # 0.00 Thou/mm3 (0.00-0.00); Nucleated Red Blood Cell % 0 /100 WBC (0); Platelet Count 366 Thou/mm3 (140-440); RDW Standard Deviation 44.1 fL (36.4-46.3); Red Blood Count 5.06 Miln/mm3 (4.00-5.20); White Blood Count 4.8 Thou/mm3 (3.6-11.0)
[2025-06-25 13:39] LABS: Glucose Estimated Average 140 mg/dL (80-131); Hemoglobin A1C 6.5 % Hgb (4.8-6.0)
[2025-06-25 13:42] LABS: Alanine Aminotransferase 18 U/L (10-49); Albumin, Serum 4.8 gm/dL (3.5-5.0); Albumin/Globulin Ratio 2.1 (1.2-2.2); Alkaline Phosphatase 61 U/L (46-116); Anion Gap 9 (7-16); Aspartate Amino Transferase 20 U/L (0-34); BUN/Creatinine Ratio 9 Ratio (12-20); Bilirubin,Total 0.8 mg/dL (0.3-1.2); Blood Urea Nitrogen 7 mg/dL (9-23); Calcium 9.4 mg/dL (8.3-10.6); Calcium (Corrected) 9.4 mg/dL (8.5-10.1); Carbon Dioxide 28.8 mMol/L (20.0-31.0); Chloride 102 mMol/L (98-107); Creatinine (Component) 0.8 mg/dL (0.6-1.3); Globulin 2.3 gm/dL (2.3-3.5); Glucose 110 mg/dL (74-106); Osmolality,Calculated 278 (275-295); Potassium 3.8 mMol/L (3.4-5.1); Sodium 140 mMol/L (136-145); Total Protein 7.1 gm/dL (5.7-8.2); eGFR > 60 See Note
== END | disposition home or self-care (01) ==
PROVIDERS: PCP Physician Assistant; Referring Provider Specialist; Visit Provider Specialist
DX: Z01.812 Encounter for preprocedural laboratory examination (principal); K21.00 Gastro-esophageal reflux disease with esophagitis, without bleeding
CPT/HCPCS: 36415; 80053; 83036; 85025

== ENCOUNTER → 2025-07-26 | Outpatient (CLI) | payer OTHER, MEDICAID, SELFPAY ==
[2025-07-26 12:46] LABS: Basophils # (Auto) 0.1 Thou/mm3 (0.0-0.2); Basophils % (Auto) 1 % (0-2.5); Eosinophils # (Auto) 0.3 Thou/mm3 (0.0-0.5); Eosinophils % (Auto) 6 % (0-10); Hematocrit 35.2 % (36.0-46.0); Hemoglobin 10.4 g/dL (12.0-16.0); Immature Granulocytes Auto 0.01 Thou/mm3 (0.00-0.00); Lymphocytes # (Auto) 1.5 Thou/mm3 (1.0-4.8); Lymphocytes % (Auto) 31 % (10-50); Mean Corpuscular HGB Conc 29.5 g/dl (31.0-37.0); Mean Corpuscular Hemoglobin 19.1 pg (25.0-35.0); Mean Corpuscular Volume 65 fL (80-100); Monocytes # (Auto) 0.4 Thou/mm3 (0.0-0.8); Monocytes % (Auto) 9 % (0-12); Neutrophils # (Auto) 2.6 Thou/mm3 (1.8-7.7); Neutrophils % (Auto) 54 % (37-80); Nucleated Red Blood Cell # 0.00 Thou/mm3 (0.00-0.00); Nucleated Red Blood Cell % 0 /100 WBC (0); Platelet Count 376 Thou/mm3 (140-440); RDW Standard Deviation 43.5 fL (36.4-46.3); Red Blood Count 5.45 Miln/mm3 (4.00-5.20); White Blood Count 4.8 Thou/mm3 (3.6-11.0)
[2025-07-26 12:55] LABS: Alanine Aminotransferase 23 U/L (10-49); Albumin, Serum 5.0 gm/dL (3.5-5.0); Albumin/Globulin Ratio 2.0 (1.2-2.2); Alkaline Phosphatase 70 U/L (46-116); Anion Gap 10 (7-16); Aspartate Amino Transferase 18 U/L (0-34); BUN/Creatinine Ratio 13 Ratio (12-20); Bilirubin,Total 0.7 mg/dL (0.3-1.2); Blood Urea Nitrogen 9 mg/dL (9-23); Calcium 9.4 mg/dL (8.3-10.6); Calcium (Corrected) 9.4 mg/dL (8.5-10.1); Carbon Dioxide 27.2 mMol/L (20.0-31.0); Chloride 103 mMol/L (98-107); Creatinine (Component) 0.7 mg/dL (0.6-1.3); Globulin 2.5 gm/dL (2.3-3.5); Glucose 102 mg/dL (74-106); Osmolality,Calculated 278 (275-295); Potassium 4.0 mMol/L (3.4-5.1); Sodium 140 mMol/L (136-145); Total Protein 7.5 gm/dL (5.7-8.2); eGFR > 60 See Note
[2025-07-26 14:16] LABS: Glucose Estimated Average 151 mg/dL (80-131); Hemoglobin A1C 6.9 % Hgb (4.8-6.0)
== END | disposition home or self-care (01) ==
LOC: COPL 11:08
PROVIDERS: PCP Physician Assistant; Referring Provider Specialist; Visit Provider Specialist
DX: Z01.812 Encounter for preprocedural laboratory examination (principal); K21.9 Gastro-esophageal reflux disease without esophagitis; K44.9 Diaphragmatic hernia without obstruction or gangrene
CPT/HCPCS: 36415; 80053; 83036; 85025